=== PATIENT | female | born 1960 | race Caucasian/White ===

== ENCOUNTER 2017-06-15 11:18 | Day surgery (SDC) | payer MEDICARE ==
--- NOTE | 2017-06-15 08:23 | HP ---
DATE OF SURGERY: 06/15/2017 HISTORY OF PRESENT ILLNESS: The patient is a 56 year-old who had some nausea, vomiting, epigastric pain for some time. Ultrasound positive cholelithiasis and wall thickening. I feel she has symptomatic cholelithiasis, chronic cholecystitis. I feel she will benefit from cholecystectomy. She had some nausea and vomiting, epigastric pain radiating to the chest. She does have history of prior open bariatric surgery 15 years ago. She did get cardiac clearance from Dr. Carver. PAST MEDICAL HISTORY: Arthritis. PAST SURGICAL HISTORY: Hip surgery, knee surgery, bariatric surgery in the past. Lap right salpingo-oophorectomy and D&C in the past by Dr. Clayton. MEDICATIONS: Ambien. She took some sort of stomach pill, [place] and Lasix. ALLERGIES: NKDA. FAMILY HISTORY: Negative in regards to this problem. Factor V issues in the past. SOCIAL HISTORY: No alcohol abuse. REVIEW OF SYSTEMS: Twelve systems reviewed per admission assessment. No chest pain or palpitations other systems negative or noncontributory as above and per preadmission questionnaire and per Dr. Carver' cardiac clearance. She has had history of blood clot. PHYSICAL EXAMINATION: GENERAL: No acute distress. HEENT: Sclerae nonicteric. NECK: No JVD. CHEST: Equal excursion, nonlabored breathing. CVS: Regular rate and rhythm. ABDOMEN: Soft, some mild tenderness epigastrium. No peritoneal signs. She does have upper midline incision from her prior bariatric surgery. EXTREMITIES: No significant edema. NEURO: Alert, moving extremities symmetrically. No gross motor deficits noted. IMPRESSION: Symptomatic cholelithiasis, probable chronic cholecystitis. I feel the patient would benefit from cholecystectomy. Risks and benefits explained in detail including but not limited to bleeding or infection, risk of trocar injury or hernia, small risk of bowel, bladder or blood vessel injury, small risk of bile leak, bile duct injury, retained stone or sludge possibly requiring further procedure either open or ERCP, general risk of anesthesia, deep venous thrombosis, pulmonary embolism, pneumonia, perioperative risk of aches, pains, bloating, constipation and/or loose stools possibly chronic in nature, general risk of anesthesia or sedation, postoperative risk of deep venous thrombosis, pulmonary embolism, pneumonia but not limited to. She understands and agrees to the planned procedure, will proceed with laparoscopic cholecystectomy possible open. She understands with her upper midline incision she has a higher probability of possibly needing open procedure which might require hospital stay, higher risk of wound infection or hernia. She understands and agrees with the planned procedure will proceed with laparoscopic cholecystectomy with possible open.
[~2017-06-15 11:18] MED LIST: BRIDION 200MG/2ML IV ONE; DIPRIVAN 200 MG/20 ML IV ONE; Decadron 4 MG INJ IV ONE; Lactated Ringers 1,000 ML IV ONE; MEFOXIN 2 GM PREMIX** 2 GM/50 ML ML IV ONE; Quelicin Fliptop 200 MG/10 ML IV ONE; SUBLIMAZE 100 MCG/2 ML IV ONE; Sensorcaine 0.25% 10 ML ONE; Zemuron 100 MG/10 ML IV ONE; Zofran 4 MG/2 ML VIAL IV ONE
[2017-06-15] MEDS ORDERED: Lactated Ringers 1,000 ML IV SCH (12:00)
[2017-06-15] MEDS ORDERED: MEFOXIN 2 GM PREMIX** 2 GM/50 ML ML IV ONE (12:00)
[2017-06-15 12:34] LABS: ANION GAP 12.7 MEQ/L (5-15); Carbon Dioxide 27.3 mEq/L (21-32); Potassium 3.8 mEq/L (3.5-5.1)
[2017-06-15] MEDS ORDERED: XYLOCAINE 2%/Epi 1:200000 20ML VIAL MPF ONE (17:30)
[2017-06-15] MEDS ORDERED: Lactated Ringers 1,000 ML IV ONE (17:48)
[2017-06-15] MEDS ORDERED: SUBLIMAZE 100 MCG/2 ML ONE (17:57)
[2017-06-15] MEDS ORDERED: DILAUDID 2 MG INJECTION ONE (17:57)
[2017-06-15] MEDS ORDERED: DEMEROL 25MG SYRINGE IV ONE (19:10)
[2017-06-15] MEDS ORDERED: DEMEROL 50 MG ONE (19:12)
[2017-06-15] MEDS ORDERED: Zofran 4 MG/2 ML VIAL IV STA (19:24)
[2017-06-15] MEDS ORDERED: Zofran 4 MG/2 ML VIAL ONE (19:25)
[2017-06-15 19:48] VITALS: BP 101/52; PULSE 18; O2SAT 93
--- NOTE | 2017-06-16 10:30 | OP ---
SURGERY DATE/TIME: 06/15/2017 1615 PREOPERATIVE DIAGNOSIS: Symptomatic cholelithiasis, chronic cholecystitis, prior history of bariatric surgery. POSTOPERATIVE DIAGNOSIS: Moderate to severe chronic cholecystitis and cholelithiasis. PROCEDURE: Laparoscopic cholecystectomy. SURGEON: Dr. Brady Burns. REGULATORY PROCESS MANAGER: Landy Fletcher, Medical Student III. ANESTHESIA: General. ESTIMATED BLOOD LOSS: Minimal. INDICATIONS: As noted above. Risks and benefits explained in detail but not limited to and consent obtained. DESCRIPTION OF PROCEDURE AND FINDINGS: The patient was taken to the OR. General anesthesia was induced. Abdomen prepped and draped in the usual sterile fashion. After official time out and no disagreement with planned procedure, a transverse incision made at supraumbilical area. She had upper midline incision from past bariatric surgery. Fascia pulled up. Veress needle inserted and tested with saline. Pneumoperitoneum accomplished insufflating opening pressure of 0-15. A 5 mm bladeless port and camera were inserted without difficulty followed by two - 5 mm right upper quadrant ports and an 11 mm epigastric port. The gallbladder was grasped. It has a little bit of a thick wall. It had extensive omental fibrofatty adhesions on it that were densely adherent and quite vascular this took some time but slowly and carefully dissected posterior-lateral to anterior fashion, required clipping some of these omental oozing veins as necessary. Extensive inflammatory reaction. Slowly and carefully the cystic duct and infundibular junction slowly and carefully well skeletonized until a critical view was obtained both anteriorly and posteriorly. Once this was accomplished cystic duct was then clipped x3 and divided in the usual fashion directly adjacent to the infundibulum. The gallbladder is slowly and carefully dissected free from its dense almost concrete attachments to the liver bed clipping additional oozing side branch off the cystic artery as necessary as well as main cystic arterial branch clipped x3 and divided. Gallbladder slowly and carefully dissected free half way up the gallbladder, the thin-walled friable gallbladder. Just from traction a small pin-hole that spilled some bile this was suction irrigated as well as possible. There was no evidence of any obvious visible stone spillage at this time in this overweight patient. The gallbladder was slowly and carefully dissected free clipping additional oozing side branches off the cystic artery as necessary on the gallbladder wall, this took some time given the floppy gallbladder, decompressed gallbladder slowly and carefully accomplished. Just prior to releasing from final attachments to the anterior edge of the liver the liver bed was re-inspected. Clips noted to be in place in cystic duct and cystic artery stumps. There were no signs of any active bleeding or bile leakage on the liver bed itself. The gallbladder was released from final attachments to the anterior edge of the liver, placed in Pleatman sac. One large stone in the gallbladder put in Pleatman sac. It was able to be retrieved and placed in the bag. There were no other visible spilled stones at this point with the patient's weight. Copious amount of irrigation irrigated clear. The gallbladder and stones were pulled free and passed off. Port replaced. Copious amount of irrigation accomplished lateral to the liver and subhepatic space irrigating until clear. It was felt given extensive inflammatory reaction it was felt she would benefit from temporary GALA drain placement to bulb suction, 10 flat GALA placed subhepatic space out through lateral port incision secured with PDS suture and placed to bulb suction. Copious amount of irrigation irrigated unclear clear. Her skin was almost anti-platelet affect oozing but good hemostasis was noted. Only the 10/11 port site epigastrium was closed with puncture closure device and the rest of the 5 mm port sites. Pneumoperitoneum decompressed. The wound irrigated out. Skin incision closed with 4-0 Vicryl. Steri-Strips and sterile dressing applied. 0.25% Marcaine local had been injected along the skin incision fascial defect. This was a long difficult dissection given extensive inflammatory reaction. The patient tolerated the procedure well. There were no immediate complications. Findings discussed with the family out in the waiting area.
== END 2017-06-15 19:50 | disposition home or self-care (01) ==
LOC: SDC 11:18
PROVIDERS: ATTEND Surgery
PROC: 0FT44ZZ Resection of Gallbladder, Percutaneous Endoscopic Approach (ICD-10-PCS; principal; 2017-06-15)
DX: K80.10 Calculus of gallbladder with chronic cholecystitis without obstruction (principal); Z98.84 Bariatric surgery status; M19.90 Unspecified osteoarthritis, unspecified site
CPT/HCPCS: 00790; 36415; 80048; J0330; J0694; J1100; J1170; J2175; J2405; J2704; J3010

== ENCOUNTER 2017-10-29 15:36 | Emergency (ER) | payer MEDICARE ==
[2017-10-29] MEDS ORDERED: MORPHINE SULFATE 4 MG INJ IV ONE ×2 (15:55→16:40)
[2017-10-29] MEDS ORDERED: Phenergan 25 MG INJ IV ONE (15:55)
[2017-10-29] MEDS ORDERED: MORPHINE SULFATE 4 MG INJ ONE ×2 (15:59→16:47)
[2017-10-29] MEDS ORDERED: Phenergan 25 MG INJ ONE (15:59)
[2017-10-29] MEDS ORDERED: Sodium Chloride 0.9% 1000 ML 1,000 ML ONE (15:59)
[2017-10-29 16:01] LABS: VBG BASE EXCESS 1.5 (-2.0-2.0); VBG CARBOXYHEMOGLOBIN 2.1 % T HGB (0.0-6.9); VBG HCO3- 26.6 meq/L (22-28); VBG HEMOGLOBIN 13.4; VBG O2 SATURATION 55.6 (95-100); VBG POTASSIUM 3.8 (3.5-5.1); VBG pH 7.4 (7.32-7.42)
[2017-10-29] MEDS ORDERED: Sodium Chloride 0.9% 1000 ML 1,000 ML IV STA (16:01)
--- NOTE | 2017-10-29 16:02 | ERPHSYRPT ---
- History of Present Illness Time Seen by Provider: 10/29/17 15:56 Source: patient Exam Limitations: no limitations Patient Subjective Stated Complaint: pt here for a headache today getting worse last couple hours, had gas leak last week thought it was fixed and gas was turned back on yesterday, pain all over, nausea and vomiting Triage Nursing Assessment: pt walked in, unsteady on feet. crying holding head, alert, and oriented, resp easy, skin w/d pink Physician History: 57-year-old white female arrives with complaint of frontal headache photophobia , nausea and vomiting symptoms since yesterday. Patient denies any fevers. Patient states she had a recent gas leak in her house and had the gas on yesterday Past medical history includes hypothyroidism, rheumatoid arthritis, depression Past surgical history includes right hip and right knee replacement Social history patient denies tobacco alcohol or illicit drug use Timing/Duration: yesterday Quality: aching Head Pain Location: frontal Severity of Pain-Max: moderate Severity of Pain-Current: moderate Recent Head Trauma: no recent headache/trauma, occasional headaches Associated Symptoms: nausea/vomiting, No confusion, No dizziness, No fatigue, No facial pain, No fever/chills, No flushing, No light-headedness, No loss of consciousness, No nasal congestion, No nasal drainage, No neck pain, No numbness in legs/feet, No rash, No sweating, No scotoma, No seizures, No sinus infection, No sensitive to light, No speech problems, No stiff neck, No trouble walking, No vision changes, No visual disturbance, No weakness Previous symptoms: no prior history Allergies/Adverse Reactions: No Known Drug Allergies Allergy (Verified 10/29/17 15:52) Home Medications: Furosemide 40 mg [Lasix 40 MG] 40 mg PO HS 04/27/13 [History] Topiramate 100 mg [Topamax 100 MG] 100 mg PO BID 04/27/13 [History] Zolpidem Tartrate 10 mg [Ambien 10 MG] 10 mg PO HS 04/27/13 [History] Aspirin 81 gm Chew [Baby Aspirin 81 mg Chew] 81 mg PO DAILY 02/12/17 [ History] Hydrocodone Bit/Acetaminophen [[place] 7.5-325 Tablet] 1 each PO BID 02/12/17 [ History] Omeprazole [Prilosec] 40 mg PO DAILY 02/12/17 [History] Smz/Tmp Ds Tablet [Bactrim Ds Tablet] 1 tab PO Q12H 10/29/17 [History] Hx Tetanus, Diphtheria Vaccination/Date Given: Yes (UP TO DATE) Hx Influenza Vaccination/Date Given: No Hx Pneumococcal Vaccination/Date Given: No Immunizations Up to Date: Yes - Review of Systems Constitutional: No Fever, No Chills Eyes: Photophobia, No Discharge, No Eye Pain, No Eye Redness, No Itchy, No Tearing, No Vision Changes, No Double Vision, No Foreign Body Sensation Ears, Nose, & Throat: No Symptoms, No Ear Pain, No Ear Discharge, No Hearing Changes, No Tinnitus, No Nose Pain, No Nose Congestion, No Nose Discharge, No Sinus Drainage, No Epistaxis, No Mouth Pain, No Mouth Swelling, No Loose Teeth, No Throat Pain, No Throat Swelling, No Hoarse, No Painful Swallowing, No Snoring , No Stridor Respiratory: No Cough, No Dyspnea Cardiac: No Chest Pain, No Edema, No Syncope Abdominal/Gastrointestinal: Nausea, Vomiting, No Abdominal Pain, No Diarrhea, No Constipation, No Hematemesis, No Hematochezia, No Melena, No Dysphagia, No Appetite Changes Genitourinary Symptoms: No Dysuria Musculoskeletal: No Back Pain, No Neck Pain Skin: No Rash Neurological: Headache, No Dizziness, No Focal Weakness, No Gait Changes, No Irritability, No Lethargy, No Paralysis, No Parasthesia, No Seizure, No Sensory Changes, No Speech Changes, No Tics, No Tremors, No Vertigo (we can probably give her a liter of) Psychological: No Symptoms Endocrine: No Symptoms All Other Systems: Reviewed and Negative - Past Medical History Pertinent Past Medical History: Yes Neurological History: Migraines ENT History: No Pertinent History Cardiac History: Angina Respiratory History: No Pertinent History Endocrine Medical History: Hypothyroidism Musculoskeletal History: Rheumatoid Arthritis GI Medical History: GERD, Gallbladder Disease History: Other Psycho-Social History: Depression Female Reproductive Disorders: No Pertinent History Other Medical History: frequent uti. fluid retention. insomnia - Past Surgical History Past Surgical History: Yes Neuro Surgical History: No Pertinent History Cardiac: No Pertinent History Respiratory: No Pertinent History Gastrointestinal: No Pertinent History Genitourinary: No Pertinent History Musculoskeletal: Other Female Surgical History: Tubal Ligation Other Surgical History: stomach stapled, right hip and knee replacement, ovary removed. knees scopes. rigth finger amputation - Social History Smoking Status: Never smoker How long have you smoked: 2-3 Exposure to second hand smoke: No Drug Use: none Patient Lives Alone: No - Female History Hx Last Menstrual Period: post Hx Now: No - Nursing Vital Signs Nursing Vital Signs: Initial Vital Signs Temperature 97.2 F 10/29/17 15:44 Pulse Rate 91 H 10/29/17 15:44 Respiratory Rate 16 10/29/17 15:44 Blood Pressure 146/57 10/29/17 15:44 O2 Sat by Pulse Oximetry 97 10/29/17 15:44 Pain Scale Pain Intensity 5 - Physical Exam General Appearance: moderate distress, alert Eye Exam: PERRL/EOMI, photophobia, other (fundi are unremarkable), No eyes nml inspection, No scleral icterus, No pale conjunctivae, No post op pupil defect (L ), No post op pupil defect (R), No EOM palsy/anisocoria Ears, Nose, Throat Exam: normal ENT inspection, pharynx normal, moist mucous membranes Neck Exam: normal inspection, supple, full range of motion, No meningismus Respiratory Exam: normal breath sounds, lungs clear Cardiovascular Exam: regular rate/rhythm, normal heart sounds Gastrointestinal/Abdominal Exam: soft, No tenderness, No distention Back Exam: normal inspection, normal range of motion Mental Status Exam: alert, 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, 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 Exam: normal speech, PERRL, No facial droop Coordination/Gait Exam: normal gait, normal cerebellar function, No ABN nose to finger (R), No ABN nose to finger (L) Motor/Sensory Exam: no motor deficit, no sensory deficit, no pronator drift, No pronator drift (R), No pronator drift (L), No sensory deficit, No weak motor strength RUE, No weak motor strength LUE, No weak motor strength RLE, No weak motor strength LLE DTR Exam: ankle (R): 2+, ankle (L): 2+ Skin Exam: normal color, warm, dry, No rash Lymphatic Exam: adenopathy SpO2 Interpretation: normal (97%) Oxygen Delivery: Room Air - Course Nursing assessment & vital signs reviewed: Yes Ordered Tests: Active Orders 24 hr Category Date Time Status IV Insertion STAT Care 10/29/17 15:55 Active BMP Stat Lab 10/29/17 16:00 Completed CBC W DIFF Stat Lab 10/29/17 16:00 Completed VENOUS BLOOD GAS Urgent Lab 10/29/17 15:56 Completed Medication Summary Discontinued Medications Generic Name Dose Route Start Last Admin Trade Name Zechariah PRN Reason Stop Dose Admin Sodium Chloride 1,000 mls @ 999 mls/hr 10/29/17 16:01 10/29/17 16:04 Sodium Chloride 0.9% 1000 Ml IV 10/29/17 17:01 999 mls/hr .Q1H1M STA Administration Sodium Chloride Confirm 10/29/17 15:59 Sodium Chloride 0.9% 1000 Ml Administered 10/29/17 16:00 Dose 1,000 mls @ ud .ROUTE .STK-MED ONE Morphine Sulfate 4 mg 10/29/17 15:55 10/29/17 16:08 Morphine Sulfate 4 Mg Inj IV 10/29/17 15:56 4 mg STAT ONE Administration Morphine Sulfate Confirm 10/29/17 15:59 Morphine Sulfate 4 Mg Inj Administered 10/29/17 16:00 Dose 4 mg .ROUTE .STK-MED ONE Morphine Sulfate 4 mg 10/29/17 16:40 10/29/17 16:47 Morphine Sulfate 4 Mg Inj IV 10/29/17 16:41 4 mg STAT ONE Administration Morphine Sulfate Confirm 10/29/17 16:47 Morphine Sulfate 4 Mg Inj Administered 10/29/17 16:48 Dose 4 mg .ROUTE .STK-MED ONE Promethazine HCl 12.5 mg 10/29/17 15:55 10/29/17 16:04 Phenergan 25 Mg Inj IV 10/29/17 15:56 12.5 mg STAT ONE Administration Promethazine HCl Confirm 10/29/17 15:59 Phenergan 25 Mg Inj Administered 10/29/17 16:00 Dose 25 mg .ROUTE .STK-MED ONE Lab/Rad Data: Laboratory Result Diagrams 10/29/17 16:00 10/29/17 16:00 Laboratory Results 10/29/17 10/29/17 10/29/17 Range/Units 16:00 16:00 15:56 WBC 7.5 (4.0-10.5) K/mm3 RBC 4.05 L (4.1-5.4) M/mm3 Hgb 12.7 (12.0-16.0) gm/dl Hct 40.1 (35-47) % MCV 99.0 (78-100) fl MCH 31.3 (26-32) pg MCHC 31.7 L (32-36) g/dl RDW 12.5 (11.5-14.0) % Plt Count 324 (150-450) K/mm3 MPV 9.8 H (6-9.5) fl Gran % 69.0 H (36.0-66.0) % Lymphocytes % 22.3 L (24.0-44.0) % Monocytes % 7.2 (0.0-12.0) % Eosinophils % 1.1 (0.00-5.0) % Basophils % 0.4 (0.0-0.4) % Basophils # 0.03 (0-0.4) VBG pH 7.40 (7.32-7.42) VBG pCO2 at Pat Temp 43 (42-55) mm/Hg VBG pO2 at Pat Temp 26 (25-40) mm/Hg VBG HCO3 26.6 (22-28) meq/L VBG O2 Sat ([place]ued[place]) 55.6 L (95-100) VBG Base Excess 1.5 (-2.0-2.0) VBG Hemoglobin 13.4 VBG Carboxyhemoglobin 2.1 (0.0-6.9) % T HGB POC Potassium 3.8 (3.5-5.1) Sodium 141 (136-145) mEq/L Potassium 3.8 (3.5-5.1) mEq/L Chloride 106 (98-107) mEq/L Carbon Dioxide 25.5 (21-32) mEq/L Anion Gap 13.4 (5-15) MEQ/L BUN 11 (9-20) mg/dL Creatinine 1.12 (0.55-1.30) mg/dl Estimated GFR 53 ML/MIN Glucose 113 H (70-110) MG/DL Calcium 9.1 (8.5-10.1) mg/dL - Progress Progress: improved Air Movement: fair Progress Note: 10/29/17 16:41 Patient with a headache since yesterday nausea vomiting photophobia. No fevers patient does have a history of migraines but hasn't had one for quite a while. Patient is started on IV normal saline bolus 1 L also given 4 mg of morphine. CBC BMP are essentially normal. Venous gases are obtained . carbon monoxide is within normal limits Patient states she is feeling better still has a headache of about 4-5 Will give her a second dose of morphine. We'll consider discharge after second dose if continues to improve. 10/29/17 17:11 Patient feeling better, wants to go home we'll discharge. - Departure Time of Disposition: 17:12 Departure Disposition: Home Clinical Impression: Migraine headache Qualifiers: Migraine type: unspecified Status migrainosus presence: without status migrainosus Intractability: not intractable Qualified Code(s): G43.909 - Migraine, unspecified, not intractable, without status migrainosus Condition: Fair Critical Care Time: No Referrals: RO VASQUEZ [Primary Care Provider] - Instructions: Headache Additional Instructions: Return home rest in a dark quiet room. Follow-up with your family doctor if symptoms are recurrent. Return for acute distress or for severe symptoms.
[2017-10-29 16:06] LABS: BASOPHIL % 0.4 % (0.0-0.4); Eosinophil % 1.1 % (0.00-5.0); Lymphocytes % 22.3 % (24.0-44.0); Mean Platelet Volume 9.8 fl (6-9.5); Monocytes % 7.2 % (0.0-12.0); Platelet Count 324 K/mm3 (150-450); Red Blood Count 4.05 M/mm3 (4.1-5.4); Red Cell Distribution Width 12.5 % (11.5-14.0); White Blood Count 7.5 K/mm3 (4.0-10.5)
[2017-10-29 16:26] LABS: ANION GAP 13.4 MEQ/L (5-15); Carbon Dioxide 25.5 mEq/L (21-32); Mean Corpuscular Hemoglobin 31.3 pg (26-32); Potassium 3.8 mEq/L (3.5-5.1)
[2017-10-29 16:56] VITALS: O2SAT 95
[2017-10-29 17:29] VITALS: BP 98/61; PULSE 74
== END 2017-10-29 17:35 | disposition home or self-care (01) ==
LOC: ED 15:36
DX: G43.909 Migraine, unspecified, not intractable, without status migrainosus (principal); R11.2 Nausea with vomiting, unspecified; Z79.891 Long term (current) use of opiate analgesic; Z79.899 Other long term (current) drug therapy
CPT/HCPCS: 36000; 36415; 80048; 82805; 85025; 96360; 96374; 99284; J2270; J2550

== ENCOUNTER 2018-03-02 13:04 | Emergency (ER) | payer MEDICARE ==
[2018-03-02] MEDS ORDERED: Phenergan 25 MG INJ IV ONE (13:40)
[2018-03-02] MEDS ORDERED: MORPHINE SULFATE 4 MG INJ IV ONE (13:40)
--- NOTE | 2018-03-02 13:49 | ERPHSYRPT ---
- History of Present Illness Time Seen by Provider: 03/02/18 13:40 Source: patient Exam Limitations: no limitations Patient Subjective Stated Complaint: migraine since 0500 today with vomiting. Triage Nursing Assessment: ambulated to room per self covering eyes. skin w/d, color normal, resp easy. lashell Physician History: 57 y/o female with history of migraine headache comes to the ER with complaints of left sided headache that started last night. Pt describes the pain as throbbing, constant, 8/10 and not relieved by motrin. Pt also admits to nausea, photophobia and blurry vision. Pt admits that the headache is similar to her previous migraine headache. Timing/Duration: yesterday Quality: throbbing Head Pain Location: frontal Severity of Pain-Max: severe Severity of Pain-Current: severe Recent Head Trauma: occasional headaches Modifying Factors: Improves With: exposure to light Associated Symptoms: nausea/vomiting, sensitive to light Previous symptoms: same symptoms as today Allergies/Adverse Reactions: No Known Drug Allergies Allergy (Verified 03/02/18 13:24) Home Medications: Furosemide 40 mg [Lasix 40 MG] 40 mg PO HS 04/27/13 [History] Aspirin 81 gm Chew [Baby Aspirin 81 mg Chew] 81 mg PO DAILY 02/12/17 [ History] Omeprazole [Prilosec] 40 mg PO DAILY 02/12/17 [History] Hx Tetanus, Diphtheria Vaccination/Date Given: Yes (UP TO DATE) Hx Influenza Vaccination/Date Given: No Hx Pneumococcal Vaccination/Date Given: No - Review of Systems Constitutional: No Fever, No Chills Eyes: No Symptoms Ears, Nose, & Throat: No Symptoms Respiratory: No Cough, No Dyspnea Cardiac: No Chest Pain, No Edema, No Syncope Abdominal/Gastrointestinal: Nausea, No Abdominal Pain, No Vomiting, No Diarrhea Genitourinary Symptoms: No Dysuria Musculoskeletal: No Back Pain, No Neck Pain Skin: No Rash Neurological: Headache, No Dizziness, No Focal Weakness, No Sensory Changes Psychological: No Symptoms Endocrine: No Symptoms All Other Systems: Reviewed and Negative - Past Medical History Pertinent Past Medical History: Yes Neurological History: Migraines ENT History: No Pertinent History Cardiac History: Angina Respiratory History: No Pertinent History Endocrine Medical History: Hypothyroidism Musculoskeletal History: Rheumatoid Arthritis GI Medical History: GERD, Gallbladder Disease History: Other Psycho-Social History: Depression Female Reproductive Disorders: No Pertinent History Other Medical History: frequent uti. fluid retention. insomnia - Past Surgical History Past Surgical History: Yes Neuro Surgical History: No Pertinent History Cardiac: No Pertinent History Respiratory: No Pertinent History Gastrointestinal: No Pertinent History Genitourinary: No Pertinent History Musculoskeletal: Other Female Surgical History: Tubal Ligation Other Surgical History: stomach stapled, right hip and knee replacement, ovary removed. knees scopes. rigth finger amputation - Social History Smoking Status: Never smoker How long have you smoked: 2-3 Exposure to second hand smoke: No Drug Use: none Patient Lives Alone: Yes - Female History Hx Now: No - Nursing Vital Signs Nursing Vital Signs: Initial Vital Signs Pulse Rate 58 L 03/02/18 13:54 Respiratory Rate 18 03/02/18 13:54 Blood Pressure 94/71 03/02/18 13:54 O2 Sat by Pulse Oximetry 97 03/02/18 13:54 Pain Scale Pain Intensity 5 - Physical Exam General Appearance: no apparent distress Eye Exam: PERRL/EOMI, photophobia Ears, Nose, Throat Exam: normal ENT inspection, moist mucous membranes Neck Exam: normal inspection, supple, full range of motion, No meningismus Respiratory Exam: normal breath sounds, lungs clear Cardiovascular Exam: regular rate/rhythm, normal heart sounds Gastrointestinal/Abdominal Exam: soft, normal bowel sounds, No tenderness, No distention Back Exam: normal inspection, normal range of motion Extremity Exam: normal inspection, normal range of motion Mental Status Exam: alert, 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, 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 Exam: normal speech, PERRL, No facial droop Coordination/Gait Exam: normal finger to nose, normal gait, normal cerebellar function Motor/Sensory Exam: no motor deficit, no sensory deficit Skin Exam: normal color, warm, dry, No rash - Course Nursing assessment & vital signs reviewed: Yes Ordered Tests: Active Orders 24 hr Category Date Time Status IV Insertion STAT Care 03/02/18 13:40 Active Medication Summary Discontinued Medications Generic Name Dose Route Start Last Admin Trade Name Freq PRN Reason Stop Dose Admin Morphine Sulfate 4 mg 03/02/18 13:40 03/02/18 13:51 Morphine Sulfate 4 Mg Inj IV 03/02/18 13:41 4 mg STAT ONE Administration Morphine Sulfate Confirm 03/02/18 13:50 Morphine Sulfate 4 Mg Inj Administered 03/02/18 13:51 Dose 4 mg .ROUTE .STK-MED ONE Promethazine HCl 12.5 mg 03/02/18 13:40 03/02/18 13:51 Phenergan 25 Mg Inj IV 03/02/18 13:41 12.5 mg STAT ONE Administration Promethazine HCl Confirm 03/02/18 13:50 Phenergan 25 Mg Inj Administered 03/02/18 13:51 Dose 25 mg .ROUTE .STK-MED ONE - Progress Progress: improved Progress Note: 03/02/18 14:26 The patient feels better after receiving morphine and phenergan. She rates the pain as 5/10 and will receive a dose of toradol prior to being discharged. - Departure Time of Disposition: 14:27 Departure Disposition: Home Clinical Impression: Migraine headache Qualifiers: Migraine type: unspecified Status migrainosus presence: without status migrainosus Intractability: not intractable Qualified Code(s): G43.909 - Migraine, unspecified, not intractable, without status migrainosus Condition: Stable Critical Care Time: No Referrals: RO VASQUEZ [Primary Care Provider] - Instructions: Migraine Headache (DC) Additional Instructions: Follow up with your primary care doctor if you should have worsening headache, nausea, vomiting or sensitivity to light.
[2018-03-02] MEDS ORDERED: MORPHINE SULFATE 4 MG INJ ONE (13:50)
[2018-03-02] MEDS ORDERED: Phenergan 25 MG INJ ONE (13:50)
[2018-03-02] MEDS ORDERED: TORAdol 30 mg Injection IV ONE (14:25)
[2018-03-02] MEDS ORDERED: TORAdol 30 mg Injection ONE (14:28)
[2018-03-02 14:47] VITALS: BP 109/73; PULSE 66; O2SAT 96
== END 2018-03-02 14:51 | disposition home or self-care (01) ==
LOC: ED 13:04
DX: G43.909 Migraine, unspecified, not intractable, without status migrainosus (principal); R11.2 Nausea with vomiting, unspecified; Z79.82 Long term (current) use of aspirin; Z79.899 Other long term (current) drug therapy
CPT/HCPCS: 36000; 96374; 96375; 99283; 99284; J1885; J2270; J2550

== ENCOUNTER 2018-07-01 11:57 | Emergency (ER) | payer MEDICARE ==
[2018-07-01 12:26] VITALS: O2SAT 97
--- NOTE | 2018-07-01 12:53 | ERPHSYRPT ---
- History of Present Illness Time Seen by Provider: 07/01/18 12:49 Historian: patient Exam Limitations: no limitations Patient Subjective Stated Complaint: ONSET OF RUQ PAIN STARTING AT 1000TODAY NO KNOWN INJURY. PAIN ON PALPATION INCREASED PAIN WITYH DEEP BREATHING. Triage Nursing Assessment: ALEERT AND OBVIOUS PAIN WITH DEEP BREATHING. LUNGS CLEAR. PAIN WITH MOVEMENT. STATES PAIN STARTED AFTER BENDING TO [employer] BOX. DENEIS OTHER SYMPTOMS. Physician History: The patient is a 57-year-old female complaining of 2 episodes of right upper quadrant abdominal pain this morning. The first one occurred when she bent over and picked up a board. The pain lasted 25 minutes. The second episode began when she picked up a package. The episode lasted 1-1/2 hours and has not completely tells me that she had a abdominal series scan done about 2 months ago. She was told she had a "mass and she was to have seen a doctor in [place] but did not. Her past medical history is significant for GERD. Her past surgical history is significant for cholecystectomy and gastric stapling. I reviewed the radiology report from her abdomen pelvis CT scan done on March. Impression is new nonobstructing left renal; stable hepatic hemangioma and small hiatal hernia. Remaining CT scan was negative. Timing/Duration: today, sudden, improved Activities at Onset: activity Quality: stabbing Abdominal Pain Onset Location: RUQ, epigastric Pain Radiation: no radiation Severity of Pain-Max: severe Severity of Pain-Current: moderate Modifying Factors: Improves With: other (bending at waist makes pain worse.) Associated Symptoms: No diaphoresis, No diarrhea, No nausea, No vomiting Previous symptoms: no prior history Allergies/Adverse Reactions: No Known Drug Allergies Allergy (Verified 07/01/18 13:19) Hx Tetanus, Diphtheria Vaccination/Date Given: Yes (UP TO DATE) Hx Influenza Vaccination/Date Given: No Hx Pneumococcal Vaccination/Date Given: No - Review of Systems Constitutional: No Fever, No Chills Eyes: No Symptoms Ears, Nose, & Throat: No Symptoms Respiratory: No Cough, No Dyspnea Cardiac: No Chest Pain, No Edema, No Syncope Abdominal/Gastrointestinal: Abdominal Pain, No Nausea, No Vomiting, No Diarrhea Genitourinary Symptoms: No Dysuria Musculoskeletal: No Back Pain, No Neck Pain Skin: No Rash Neurological: No Dizziness, No Focal Weakness, No Sensory Changes Psychological: No Symptoms Endocrine: No Symptoms Hematologic/Lymphatic: No Symptoms Immunological/Allergic: No Symptoms All Other Systems: Reviewed and Negative - Past Medical History Pertinent Past Medical History: Yes Neurological History: Migraines ENT History: No Pertinent History Cardiac History: Angina Respiratory History: No Pertinent History Endocrine Medical History: Hypothyroidism Musculoskeletal History: Rheumatoid Arthritis GI Medical History: GERD, Gallbladder Disease History: Other Psycho-Social History: Depression Female Reproductive Disorders: No Pertinent History Other Medical History: frequent uti. fluid retention. insomnia - Past Surgical History Past Surgical History: Yes Neuro Surgical History: No Pertinent History Cardiac: No Pertinent History Respiratory: No Pertinent History Gastrointestinal: No Pertinent History Genitourinary: No Pertinent History Musculoskeletal: Other Female Surgical History: Tubal Ligation Other Surgical History: stomach stapled, right hip and knee replacement, ovary removed. knees scopes. rigth finger amputation - Social History Smoking Status: Never smoker How long have you smoked: 2-3 Exposure to second hand smoke: No Drug Use: none Patient Lives Alone: No - Female History Hx Now: No - Nursing Vital Signs Nursing Vital Signs: Initial Vital Signs Temperature 97.9 F 07/01/18 12:20 Pulse Rate 75 07/01/18 12:20 Respiratory Rate 18 07/01/18 12:20 Blood Pressure 109/74 07/01/18 12:20 O2 Sat by Pulse Oximetry 97 07/01/18 12:20 Pain Scale Pain Intensity 2 - Physical Exam General Appearance: mild distress Eye Exam: PERRL/EOMI, eyes nml inspection Ears, Nose, Throat Exam: normal ENT inspection, pharynx normal, moist mucous membranes Neck Exam: normal inspection, non-tender, supple, full range of motion Respiratory Exam: normal breath sounds, lungs clear, No respiratory distress Cardiovascular Exam: regular rate/rhythm, normal heart sounds Gastrointestinal/Abdomen Exam: tenderness (extreme tenderness to palpation of RUQ and epigastrium.) Pelvic Exam: not done Rectal Exam: not done Back Exam: normal inspection Extremity Exam: normal inspection, normal range of motion, pelvis stable Neurologic Exam: alert, 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, cooperative, normal mood/affect, nml cerebellar function, sensation nml, No motor deficits Skin Exam: normal color, warm, dry SpO2 Interpretation: normal SpO2: 97 Oxygen Delivery: Room Air - CT Exams Abdomen/Pelvis CT Interpretation: Tele-radiologist Report (per Dr Herron), No appendicitis, Other (stable hiatal hernia and nonobstructing left renal microcalculus; previous right lobe hepatic hemangioma no seen on this exam.) Ordered Tests: Active Orders 24 hr Category Date Time Status Clean Catch Urine Specimen STAT Care 07/01/18 12:54 Active IV Insertion STAT Care 07/01/18 12:54 Active ABDOMEN AND PELVIS W/0 CONTRAS [CT] Stat Exams 07/01/18 12:55 Completed CBC W DIFF Stat Lab 07/01/18 Completed CMP Stat Lab 07/01/18 13:42 Completed CULTURE,URINE Stat Lab 07/01/18 13:23 Received HCG QUALITATIVE,SERUM Stat Lab 07/01/18 13:42 Completed LIPASE Stat Lab 07/01/18 13:42 Completed Lactic Acid Stat Lab 07/01/18 13:36 Completed UA W/ MICROSCOPIC Stat Lab 07/01/18 13:23 Completed Urine Triage Profile Stat Lab 07/01/18 13:16 Completed Medication Summary Discontinued Medications Generic Name Dose Route Start Last Admin Trade Name Freq PRN Reason Stop Dose Admin Famotidine 20 mg 07/01/18 12:54 07/01/18 13:53 Pepcid 20 Mg Vial IV 07/01/18 12:55 20 mg STAT ONE Administration Famotidine Confirm 07/01/18 13:46 Pepcid 20 Mg Vial Administered 07/01/18 13:47 Dose 20 mg IV .STK-MED ONE Sodium Chloride 1,000 mls @ 999 mls/hr 07/01/18 12:54 07/01/18 13:54 Sodium Chloride 0.9% 1000 Ml IV 07/01/18 13:54 999 mls/hr .Q1H1M STA Administration Sodium Chloride Confirm 07/01/18 13:46 Sodium Chloride 0.9% 1000 Ml Administered 07/01/18 13:47 Dose 1,000 mls @ ud .ROUTE .STK-MED ONE Ketorolac Tromethamine 30 mg 07/01/18 12:54 07/01/18 13:53 Toradol 30 Mg Injection IV 07/01/18 12:55 30 mg STAT ONE Administration Ketorolac Tromethamine Confirm 07/01/18 13:46 Toradol 30 Mg Injection Administered 07/01/18 13:47 Dose 30 mg .ROUTE .STK-MED ONE Morphine Sulfate 4 mg 07/01/18 12:54 07/01/18 13:53 Morphine Sulfate 4 Mg Inj IV 07/01/18 12:55 4 mg STAT ONE Administration Morphine Sulfate Confirm 07/01/18 13:46 Morphine Sulfate 4 Mg Inj Administered 07/01/18 13:47 Dose 4 mg .ROUTE .STK-MED ONE Ondansetron HCl 4 mg 07/01/18 12:54 07/01/18 13:54 Zofran 4 Mg/2 Ml Vial IV 07/01/18 12:55 4 mg STAT ONE Administration Ondansetron HCl Confirm 07/01/18 13:46 Zofran 4 Mg/2 Ml Vial Administered 07/01/18 13:47 Dose 4 mg .ROUTE .STK-MED ONE Lab/Rad Data: Laboratory Result Diagrams 07/01/18 Unknown 07/01/18 13:42 Laboratory Results 07/01/18 07/01/18 07/01/18 Range/Units Unknown 13:42 13:42 WBC 6.4 (4.0-10.5) K/mm3 RBC 4.19 (4.1-5.4) M/mm3 Hgb 13.6 (12.0-16.0) gm/dl Hct 41.1 (35-47) % MCV 98.1 (78-100) fl MCH 32.5 H (26-32) pg MCHC 33.1 (32-36) g/dl RDW 13.0 (11.5-14.0) % Plt Count 305 (150-450) K/mm3 MPV 9.8 H (6-9.5) fl Gran % 49.1 (36.0-66.0) % Eos # (Auto) 0.23 (0-0.5) Absolute Lymphs (auto) 2.33 (1.0-4.6) Absolute Monos (auto) 0.65 (0.0-1.3) Lymphocytes % 36.6 (24.0-44.0) % Monocytes % 10.2 (0.0-12.0) % Eosinophils % 3.6 (0.00-5.0) % Basophils % 0.5 (0.0-0.4) % Absolute Granulocytes 3.13 (1.4-6.9) Basophils # 0.03 (0-0.4) Sodium 144 (137-145) mmol/L Potassium 4.1 (3.5-5.1) mmol/L Chloride 108 H (98-107) mmol/L Carbon Dioxide 27 (22-30) mmol/L Anion Gap 13.9 (5-15) MEQ/L BUN 13 (7-17) mg/dL Creatinine 0.91 (0.52-1.04) mg/dL Estimated GFR > 60.0 ML/MIN Glucose 105 (74-106) mg/dL Lactic Acid (0.4-2.0) Calcium 9.6 (8.4-10.2) mg/dL Total Bilirubin 0.80 (0.2-1.3) mg/dL AST 52 H (14-36) U/L ALT 27 (0-35) U/L Alkaline Phosphatase 97 (38-126) U/L Serum Total Protein 7.3 (6.3-8.2) g/dL Albumin 4.5 (3.5-5.0) g/dL Lipase 72 (23-300) U/L Serum , Qual NEGATIVE (Negative) Ur Collection Type Urine Color (YELLOW) Urine Appearance (CLEAR) Urine pH (5-6) Ur Specific [place] (1.005-1.025) Urine Protein (Negative) Urine Ketones (NEGATIVE) Urine Blood (0-5) Naseem/ul Urine Nitrite (NEGATIVE) Urine Bilirubin (NEGATIVE) Urine Urobilinogen (0-1) mg/dL Ur Leukocyte Esterase (NEGATIVE) Urine Microscopic RBC (0-2) /HPF Urine Microscopic WBC (0-5) /HPF Ur Epithelial Cells (FEW) /HPF Urine Bacteria (NEGATIVE) /HPF Urine Mucus (NEGATIVE) /HPF Urine Culture Reflexed (NO) Urine Glucose (NEGATIVE) mg/dL Urine Opiates Level (NEGATIVE) Ur Methadone (NEGATIVE) Urine Barbiturates (NEGATIVE) Ur Phencyclidine (PCP) (NEGATIVE) Urine Amphetamine (NEGATIVE) U Benzodiazepine Level (NEGATIVE) Urine Cocaine (NEGATIVE) Urine Marijuana (THC) (NEGATIVE) Specimen Received 07/01/18 07/01/18 07/01/18 Range/Units 13:36 13:23 13:16 WBC (4.0-10.5) K/mm3 RBC (4.1-5.4) M/mm3 Hgb (12.0-16.0) gm/dl Hct (35-47) % MCV (78-100) fl MCH (26-32) pg MCHC (32-36) g/dl RDW (11.5-14.0) % Plt Count (150-450) K/mm3 MPV (6-9.5) fl Gran % (36.0-66.0) % Eos # (Auto) (0-0.5) Absolute Lymphs (auto) (1.0-4.6) Absolute Monos (auto) (0.0-1.3) Lymphocytes % (24.0-44.0) % Monocytes % (0.0-12.0) % Eosinophils % (0.00-5.0) % Basophils % (0.0-0.4) % Absolute Granulocytes (1.4-6.9) Basophils # (0-0.4) Sodium (137-145) mmol/L Potassium (3.5-5.1) mmol/L Chloride (98-107) mmol/L Carbon Dioxide (22-30) mmol/L Anion Gap (5-15) MEQ/L BUN (7-17) mg/dL Creatinine (0.52-1.04) mg/dL Estimated GFR ML/MIN Glucose (74-106) mg/dL Lactic Acid 1.0 (0.4-2.0) Calcium (8.4-10.2) mg/dL Total Bilirubin (0.2-1.3) mg/dL AST (14-36) U/L ALT (0-35) U/L Alkaline Phosphatase (38-126) U/L Serum Total Protein (6.3-8.2) g/dL Albumin (3.5-5.0) g/dL Lipase (23-300) U/L Serum , Qual (Negative) Ur Collection Type CCMS Urine Color YELLOW (YELLOW) Urine Appearance CLEAR (CLEAR) Urine pH 5.0 (5-6) Ur Specific [place] 1.030 (1.005-1.025) Urine Protein NEGATIVE (Negative) Urine Ketones NEGATIVE (NEGATIVE) Urine Blood 250 (0-5) Naseem/ul Urine Nitrite NEGATIVE (NEGATIVE) Urine Bilirubin NEGATIVE (NEGATIVE) Urine Urobilinogen NORMAL (0-1) mg/dL Ur Leukocyte Esterase TRACE (NEGATIVE) Urine Microscopic RBC 5-10 (0-2) /HPF Urine Microscopic WBC 0-2 (0-5) /HPF Ur Epithelial Cells RARE (FEW) /HPF Urine Bacteria RARE (NEGATIVE) /HPF Urine Mucus SLIGHT (NEGATIVE) /HPF Urine Culture Reflexed YES (NO) Urine Glucose NEGATIVE (NEGATIVE) mg/dL Urine Opiates Level NEGATIVE (NEGATIVE) Ur Methadone NEGATIVE (NEGATIVE) Urine Barbiturates NEGATIVE (NEGATIVE) Ur Phencyclidine (PCP) NEGATIVE (NEGATIVE) Urine Amphetamine NEGATIVE (NEGATIVE) U Benzodiazepine Level NEGATIVE (NEGATIVE) Urine Cocaine NEGATIVE (NEGATIVE) Urine Marijuana (THC) NEGATIVE (NEGATIVE) Specimen Received 07-01-18 1345 - Progress Progress: improved Counseled pt/family regarding: lab results, diagnosis, rad results - Departure Time of Disposition: 15:29 Departure Disposition: Home Clinical Impression: Abdominal pain Condition: Stable Critical Care Time: No Referrals: SHIELA GUERRERO [Primary Care Provider] - Additional Instructions: You had a brief episode this morning of abdominal pain. You were given Pepcid 20 mg, Toradol 30 mg, Zofran 4 mg, and morphine 4 mg by IV in the ER. Stay well hydrated. Follow-up with your primary medical doctor as needed.
[2018-07-01] MEDS ORDERED: TORAdol 30 mg Injection IV ONE (12:54)
[2018-07-01] MEDS ORDERED: Pepcid 20 MG VIAL IV ONE ×2 (12:54→13:46)
[2018-07-01] MEDS ORDERED: MORPHINE SULFATE 4 MG INJ IV ONE (12:54)
[2018-07-01] MEDS ORDERED: Sodium Chloride 0.9% 1000 ML 1,000 ML IV STA (12:54)
[2018-07-01] MEDS ORDERED: Zofran 4 MG/2 ML VIAL IV ONE (12:54)
[2018-07-01 13:28] LABS: BASOPHIL % 0.5 % (0.0-0.4); Basophil (Absolute #) 0.03 (0-0.4); Eosinophil % 3.6 % (0.00-5.0); Eosinophil (Absolute #) 0.23 (0-0.5); Granulocyte Absolute (ANC) 3.13 (1.4-6.9); Granulocytes % 49.1 % (36.0-66.0); Hematocrit 41.1 % (35-47); Hemoglobin 13.6 gm/dl (12.0-16.0); Lymphocyte (Absolute #) 2.33 (1.0-4.6); Lymphocytes % 36.6 % (24.0-44.0); Mean Cell Volume 98.1 fl (78-100); Mean Corpuscular Hemoglobin 32.5 pg (26-32); Mean Corpuscular Hgb Concent. 33.1 g/dl (32-36); Mean Platelet Volume 9.8 fl (6-9.5); Monocyte (Absolute #) 0.65 (0.0-1.3); Monocytes % 10.2 % (0.0-12.0); Platelet Count 305 K/mm3 (150-450); Red Blood Count 4.19 M/mm3 (4.1-5.4); White Blood Count 6.4 K/mm3 (4.0-10.5)
[2018-07-01 13:45] LABS: Appearance CLEAR (CLEAR); Bilirubin NEGATIVE (NEGATIVE); Glucose NEGATIVE (NEGATIVE); Ketones NEGATIVE (NEGATIVE); Leukocyte Esterase TRACE (NEGATIVE); Nitrite NEGATIVE (NEGATIVE); Protein,Urine Dip NEGATIVE (Negative); Urobilinogen NORMAL mg/dL (0-1)
[2018-07-01 13:46] LABS: Bacteria RARE /HPF (NEGATIVE); Blood 250 Ery/ul (0-5); Epithelial Cells RARE /HPF (FEW); Mucus SLIGHT /HPF (NEGATIVE); WBC 0-2 /HPF (0-5)
[2018-07-01] MEDS ORDERED: TORAdol 30 mg Injection ONE (13:46)
[2018-07-01] MEDS ORDERED: MORPHINE SULFATE 4 MG INJ ONE (13:46)
[2018-07-01] MEDS ORDERED: Sodium Chloride 0.9% 1000 ML 1,000 ML ONE (13:46)
[2018-07-01] MEDS ORDERED: Zofran 4 MG/2 ML VIAL ONE (13:46)
[2018-07-01 13:53] LABS: Amphetamine,Urine NEGATIVE (NEGATIVE); Barbiturate,Urine NEGATIVE (NEGATIVE); Benzodiazepine,Urine NEGATIVE (NEGATIVE); Cocaine,Urine NEGATIVE (NEGATIVE); Methadone,Urine NEGATIVE (NEGATIVE); Opiate,Urine NEGATIVE (NEGATIVE); PCP,Urine NEGATIVE (NEGATIVE); THC,Urine NEGATIVE (NEGATIVE)
[2018-07-01 13:59] LABS: ALBUMIN 4.5 g/dL (3.5-5.0); ALKALINE PHOSPHATASE 97 U/L (38-126); ANION GAP 13.9 MEQ/L (5-15); BLOOD UREA NITROGEN 13 mg/dL (7-17); CHLORIDE 108 mmol/L (98-107); Calcium 9.6 mg/dL (8.4-10.2); Carbon Dioxide 27 mmol/L (22-30); Creatinine 1 0.91 mg/dL (0.52-1.04); Glucose 105 mg/dL (74-106); LIPASE 72 U/L (23-300); Potassium 4.1 mmol/L (3.5-5.1); SGOT/AST 52 U/L (14-36); SGPT/ALT 27 U/L (0-35); SODIUM 144 mmol/L (137-145); Total Protein 7.3 g/dL (6.3-8.2)
--- NOTE | 2018-07-01 14:02 | XRAY ---
Indication: Right upper quadrant/epigastric pain. Multiple contiguous axial images obtained through the abdomen and pelvis without contrast as ordered. Comparison: April 01, 2018. Lung bases demonstrates minimal bibasilar dependent atelectasis. No infiltrate or effusion. Heart is not enlarged. Again moderate sized hiatal hernia. Right hip prosthesis and orthopedic hardware again produces beam artifact. Noncontrasted stomach and bowel loops again nonobstructed with previous gastric stapling and cholecystectomy. Appendix not seen. No free fluid/air. Stable 2 mm nonobstructing left renal calculus. Previous right lobe hepatic hemangioma not seen on this noncontrast exam. Remaining liver, pancreas, spleen, adrenal glands, kidneys, ureters, bladder, uterus, and aorta appear unremarkable. Osseous structures intact. No ventral or inguinal hernias. Impression: 1. Stable hiatal hernia and nonobstructing left renal micro-calculus. 2. Remaining CT abdomen/pelvis without contrast exam is negative. CT DI 23.52
[2018-07-01 16:09] VITALS: BP 96/54; PULSE 70
== END 2018-07-01 16:05 | disposition home or self-care (01) ==
LOC: ED 11:57
DX: R10.11 Right upper quadrant pain (principal); R10.13 Epigastric pain
CPT/HCPCS: 36000; 36415; 74176; 80053; 80307; 81000; 83605; 83690; 84703; 85025; 87086; 96360; 96361; 96374; 96375; 99284; J1885; J2270; J2405

== ENCOUNTER 2020-01-18 06:08 | Day surgery (SDC) | payer MEDICARE ==
[~2020-01-18 06:08] MED LIST changes: -BRIDION 200MG/2ML IV ONE; -DIPRIVAN 200 MG/20 ML IV ONE; -Decadron 4 MG INJ IV ONE; -Lactated Ringers 1,000 ML IV ONE; +Lactated Ringers 1,000 ML IV SCH; -MEFOXIN 2 GM PREMIX** 2 GM/50 ML ML IV ONE; -Quelicin Fliptop 200 MG/10 ML IV ONE; -SUBLIMAZE 100 MCG/2 ML IV ONE; -Sensorcaine 0.25% 10 ML ONE; -Zemuron 100 MG/10 ML IV ONE; -Zofran 4 MG/2 ML VIAL IV ONE
[2020-01-18] MEDS ORDERED: DIPRIVAN 200 MG/20 ML IV ONE ×4 (07:27→08:01)
[2020-01-18] MEDS ORDERED: SUBLIMAZE 100 MCG/2 ML ONE (07:59)
[2020-01-18] MEDS ORDERED: Lactated Ringers 1,000 ML IV ONE (08:14)
[2020-01-18 09:17] VITALS: O2SAT 95
--- NOTE | 2020-01-18 09:20 | OP ---
SURGERY DATE/TIME: 01/18/2020 0732 PREOPERATIVE DIAGNOSES: 1) Hiatal hernia. 2) Persistent gastroesophageal reflux disease. 3) Screening colon. POSTOPERATIVE DIAGNOSES: 1) Hiatal hernia. 2) Ascending colon polyp x1. PROCEDURES: 1) EGD. 2) Colonoscopy. SURGEON: Jamin Powers M.D. ANESTHESIA: MAC by Maxwell Romero CRNA. ESTIMATED BLOOD LOSS: Minimal. SPECIMENS: Hot forceps polypectomy of ascending colon polyp. DESCRIPTION OF PROCEDURE: After informed written consent was obtained, the patient was taken to the endoscopy suite. She underwent monitored anesthesia and a bite block was inserted. The endoscope was inserted in the posterior oropharynx and under direct visualization the esophagus was traversed. The gastroesophageal mucosa had a normal appearance. There was moderate in size hiatal hernia appreciable on entering the gastric cavity. There were no ulcerations or mucosal abnormalities in the antrum or the duodenum. On retroflexion again hiatal hernia was appreciable but no other abnormalities were encountered. The scope was removed and the scopes were switched. Digital rectal exam showed normal sphincter tone and no internal lesions. The scope was inserted in the rectum and sequentially the entire colonic mucosa was traversed. The level of cecum was reached and verified with direct visualization of ileocecal valve. Upon withdrawal careful mucosal inspection revealed a sessile polyp in the ascending colon near the hepatic flexure which was grasped and removed with hot forceps in piecemeal fashion with good removal of the entire lesion and good hemostasis achieved. On further withdrawal no other obvious mucosal abnormalities. There was some mucous present. Prep was noted to be fair. Prior to withdrawal retroflexion was performed and showed no obvious internal lesions. The scope was removed and the patient was transferred to the recovery room in good condition
[2020-01-18 09:25] VITALS: BP 135/80; PULSE 72
== END 2020-01-18 09:25 | disposition home or self-care (01) ==
LOC: SDC 06:08
PROVIDERS: ATTEND Family Medicine
DX: K44.9 Diaphragmatic hernia without obstruction or gangrene (principal); K21.9 Gastro-esophageal reflux disease without esophagitis; Z12.11 Encounter for screening for malignant neoplasm of colon; K63.5 Polyp of colon
CPT/HCPCS: 88305; J2704; J3010

== ENCOUNTER 2021-02-03 06:48 | Emergency (ER) | payer MEDICARE ==
[2021-02-03 07:25] VITALS: O2SAT 95
[2021-02-03] MEDS ORDERED: Sodium Chloride 0.9% 1000 ML 1,000 ML IV STA (07:36)
[2021-02-03] MEDS ORDERED: TORAdol 30 mg Injection IV ONE (07:36)
[2021-02-03] MEDS ORDERED: TYLENOL 325 MG PO ONE (07:36)
[2021-02-03] MEDS ORDERED: BENADRYL 50 MG/ML IV ONE (07:36)
[2021-02-03] MEDS ORDERED: Reglan 10 MG/2 ML IV ONE (07:36)
[2021-02-03] MEDS ORDERED: BENADRYL 50 MG/ML ONE (07:44)
[2021-02-03] MEDS ORDERED: TORAdol 30 mg Injection ONE (07:44)
[2021-02-03] MEDS ORDERED: Sodium Chloride 0.9% 500 ML 500 ML IV ONE ×2 (07:44→09:03)
[2021-02-03] MEDS ORDERED: Reglan 10 MG/2 ML ONE (07:44)
[2021-02-03] MEDS ORDERED: TYLENOL 325 MG ONE (07:44)
--- NOTE | 2021-02-03 07:55 | ERPHSYRPT ---
- History of Present Illness Time Seen by Provider: 02/03/21 07:18 Source: patient Exam Limitations: no limitations Patient Subjective Stated Complaint: PT STATES SHE HAS HAD A HEADACHE. STATES PAIN IS IN THE TOP OF HER HEAD AND THE SIDES. Triage Nursing Assessment: PT ARRIVE PER FAMILY VEHICLE. TO ROOM PER WHEELCHAIR. PT DOES NOT ATTEMPT TO STAND TO GET INTO BED. PT DID STAND WITH ASSIST TO GET INTO THE WHEELCHAIR. PUPILS EQUAL AND REACTIVE. PT WILL LIFT ARMS AT TIMES. UNCOOPERATIVE AT OTHER TIMES. VOICE WEAK. WILL ANSWER SOME QUESTIONS. POOR HISTORIAN. Physician History: 60 years old female with history of migraines not taking any medications presented in the ER with sudden onset generalized headache waking her up from sleep around 11 PM last night, she took 2 Excedrin Migraine with no significant relief and over the course of hours it is gone very worse. Patient reported on presentation her headache was 10/10 intensity without any significant aggravating or relieving factors. Denied any visual symptoms, difficulty speech, focal weakness but does feel weak and fatigued all over. Denies any neck stiffness or pain. No chest pain palpitations or shortness of breath. Had mild nausea initially but no vomiting. Nausea is relieved now. Patient was taken to CT immediately on presentation before my shift shift started and on my evaluation patient report her headache is significantly improved and currently rates 5/10 intensity without any other associated symptoms. Headache is similar to previous episodes. No fever or chills reported. Denies any sick contact. Timing/Duration: hour(s) (8), sudden, worse Quality: sharpness Head Pain Location: frontal, temporal, parietal Severity of Pain-Max: severe Severity of Pain-Current: moderate Recent Head Trauma: no recent headache/trauma Associated Symptoms: fatigue, sensitive to light, No facial pain, No fever/chills, No flushing, No light-headedness, No nausea/vomiting, No nasal congestion, No nasal drainage, No neck pain, No numbness in legs/feet, No seizures, No sinus infection, No speech problems, No stiff neck, No vision changes, No visual disturbance Previous symptoms: same symptoms as today Allergies/Adverse Reactions: No Known Drug Allergies Allergy (Verified 02/03/21 07:25) Home Medications: Omeprazole 1 tab PO DAILY 01/12/20 [History] Trazodone HCl 50 mg [Desyrel 50 mg] 150 mg PO QHS 01/12/20 [History] Hx Tetanus, Diphtheria Vaccination/Date Given: Yes (UP TO DATE) Hx Influenza Vaccination/Date Given: No Hx Pneumococcal Vaccination/Date Given: No Immunizations Up to Date: Yes Travel Risk - International Travel Have you traveled outside of the country in past 3 weeks: No - Coronavirus Screening Are you exhibiting any of the following symptoms?: Yes Symptoms: Headaches/Body Aches/Fatigue Close contact with a COVID-19 positive Pt in past 14-21 Days: No - Review of Systems Constitutional: No Symptoms Eyes: Photophobia Ears, Nose, & Throat: No Symptoms Respiratory: No Symptoms Cardiac: No Symptoms Abdominal/Gastrointestinal: Nausea Genitourinary Symptoms: No Symptoms Musculoskeletal: No Symptoms Skin: No Symptoms Neurological: Headache, No Dizziness, No Parasthesia, No Sensory Changes, No Speech Changes Psychological: No Symptoms Endocrine: No Symptoms Hematologic/Lymphatic: No Symptoms Immunological/Allergic: No Symptoms - Past Medical History Pertinent Past Medical History: Yes Neurological History: No Pertinent History ENT History: No Pertinent History Cardiac History: No Pertinent History, Arrhythmia, Deep Vein Thrombosis Respiratory History: No Pertinent History Endocrine Medical History: No Pertinent History Musculoskeletal History: Osteoarthritis GI Medical History: GERD, Gallbladder Disease History: Other Psycho-Social History: Anxiety, Depression Female Reproductive Disorders: No Pertinent History Other Medical History: RIGHT HIP REPLACEMENT 2004. RIGHT KNEE REPLACEMENT 2014. hand surgery - Past Surgical History Past Surgical History: Yes Neuro Surgical History: No Pertinent History Cardiac: No Pertinent History Respiratory: No Pertinent History Gastrointestinal: Other Genitourinary: No Pertinent History Musculoskeletal: Joint Replacement, Other Female Surgical History: Tubal Ligation, Other Other Surgical History: stomach stapled, right hip and knee replacement, ovary removed. knees scopes. rigth finger amputation - Social History Smoking Status: Former smoker How long have you smoked: 2 years Exposure to second hand smoke: No Drug Use: none Patient Lives Alone: No - Nursing Vital Signs Nursing Vital Signs: Initial Vital Signs Temperature 98.0 F 02/03/21 06:50 Pulse Rate 73 02/03/21 06:50 Respiratory Rate 14 02/03/21 06:50 Blood Pressure 109/80 02/03/21 06:50 O2 Sat by Pulse Oximetry 95 02/03/21 06:50 Pain Scale Pain Intensity 5 - Physical Exam General Appearance: no apparent distress Eye Exam: PERRL/EOMI, eyes nml inspection Ears, Nose, Throat Exam: normal ENT inspection, TMs normal, pharynx normal Neck Exam: normal inspection, non-tender, supple, full range of motion, No Brudzinski, No Kernig's, No limited range of motion, No midline tenderness Respiratory Exam: normal breath sounds, lungs clear Cardiovascular Exam: regular rate/rhythm, normal heart sounds Gastrointestinal/Abdominal Exam: soft, normal bowel sounds, No tenderness Back Exam: normal inspection, normal range of motion, No CVA tenderness Extremity Exam: normal inspection, normal range of motion, pelvis stable Mental Status Exam: alert, 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, 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 Exam: normal hearing, normal speech, PERRL, No facial asymmetry Coordination/Gait Exam: normal finger to nose, normal cerebellar function Motor/Sensory Exam: no motor deficit, no sensory deficit, no pronator drift, negative Babinski's sign DTR Exam: bicep (R): 2+, bicep (L): 2+, knee (R): 2+, knee (L): 2+, ankle (R): 2+, ankle (L): 2+ Skin Exam: normal color SpO2 Interpretation: normal SpO2: 95 O2 Delivery: Room Air Ordered Tests: Active Orders 24 hr Category Date Time Status IV Insertion STAT Care 02/03/21 07:36 Active HEAD WITHOUT CONTRAST [CT] Routine Exams 02/03/21 07:01 Completed Medication Summary Generic Name Dose Route Start Last Admin Trade Name Freq PRN Reason Stop Dose Admin Sodium Chloride 1,000 mls @ 500 mls/hr 02/03/21 07:36 Sodium Chloride 0.9% 1000 Ml IV 02/03/21 09:35 .Q2H STA Discontinued Medications Generic Name Dose Route Start Last Admin Trade Name Freq PRN Reason Stop Dose Admin Acetaminophen 975 mg 02/03/21 07:36 02/03/21 07:49 Tylenol 325 Mg PO 02/03/21 07:37 975 mg STAT ONE Administration Acetaminophen Confirm 02/03/21 07:44 Tylenol 325 Mg Administered 02/03/21 07:45 Dose 975 mg .ROUTE .STK-MED ONE Diphenhydramine HCl 25 mg 02/03/21 07:36 02/03/21 07:47 Benadryl 50 Mg/Ml IV 02/03/21 07:37 25 mg STAT ONE Administration Diphenhydramine HCl Confirm 02/03/21 07:44 Benadryl 50 Mg/Ml Administered 02/03/21 07:45 Dose 50 mg .ROUTE .STK-MED ONE Sodium Chloride Confirm 02/03/21 07:44 Sodium Chloride 0.9% 500 Ml Administered 02/03/21 07:45 Dose 500 mls @ ud IV .STK-MED ONE Ketorolac Tromethamine 30 mg 02/03/21 07:36 02/03/21 07:46 Toradol 30 Mg Injection IV 02/03/21 07:37 30 mg STAT ONE Administration Ketorolac Tromethamine Confirm 02/03/21 07:44 Toradol 30 Mg Injection Administered 02/03/21 07:45 Dose 30 mg .ROUTE .STK-MED ONE Metoclopramide HCl 10 mg 02/03/21 07:36 02/03/21 07:48 Reglan 10 Mg/2 Ml IV 02/03/21 07:37 10 mg STAT ONE Administration Metoclopramide HCl Confirm 02/03/21 07:44 Reglan 10 Mg/2 Ml Administered 02/03/21 07:45 Dose 10 mg .ROUTE .STK-MED ONE - Progress Progress: improved Air Movement: good Progress Note: 02/03/21 09:02 60 years old is evaluated for global headache. Her headache was improved on my evaluation. CT head is negative for any acute intracranial findings. She has a nonfocal neuro exam throughout stay in the ER. No signs symptoms suggesting CVA/stroke. She is given fluid bolus and migraine cocktail Toradol/Reglan/Benadryl, on reevaluation her headache is around 1/2 and she wants to go home. No signs of meningismus. I believe patient has migraine, recommended outpatient follow-up with primary care and neurology for further evaluation to be placed on prophylactic medications. She is advised to take Tylenol as needed. Discussed signs symptoms of worsening needing return to ER which she seems understanding. Stable for discharge. Blood Culture(s) Obtained: No Antibiotics given: No Counseled pt/family regarding: diagnosis, need for follow-up, rad results - Departure Departure Disposition: Home Clinical Impression: Migraine headache Qualifiers: Migraine type: other Status migrainosus presence: without status migrainosus Intractability: not intractable Qualified Code(s): G43.809 - Other migraine, not intractable, without status migrainosus Condition: Stable Critical Care Time: No Referrals: RO DEAL [Primary Care Provider] - (1-2 days for reevaluation) LILI FOSTER [NON-STAFF PHY W/O PRIVILEGES] - (1-2 days for reevaluation) Instructions: Headache, Adult (DC) Additional Instructions: Take Tylenol as needed for headache. Follow-up with your primary care and neurology for reevaluation. Return to ER for worsening headache or if have visual disturbance, difficulty speech, focal numbness tingling or weakness or difficulty movements of neck etc.
--- NOTE | 2021-02-03 08:03 | XRAY ---
Indication: Altered level of consciousness. Stroke. Multiple contiguous axial images obtained through the head without contrast. Comparison: None Normal appearing brain parenchyma, ventricles, and bony calvarium for patient's age. Mucosal thickening of both maxillary and right ethmoid sinuses with small right maxillary sinus fluid leveling. Mastoid air cells are clear. Impression: Paranasal sinus disease. Remaining CT head without contrast exam is negative. Comment: Preliminary interpretation was made by [facility]. No critical discrepancy.
[2021-02-03 09:05] VITALS: BP 88/64; PULSE 96
== END 2021-02-03 09:38 | disposition home or self-care (01) ==
LOC: ED 06:48
DX: G43.809 Other migraine, not intractable, without status migrainosus (principal)
CPT/HCPCS: 36000; 70450; 96360; 96374; 96375; 99284; J1200; J1885; A9270-GY

== ENCOUNTER 2022-03-19 17:26 | Emergency (ER) | payer MEDICARE ==
[2022-03-19 17:36] VITALS: BP 122/77; PULSE 110; O2SAT 99
[2022-03-19] MEDS ORDERED: XYLOCAINE 1% HCL 20 ML MDV ONE (17:36)
--- NOTE | 2022-03-19 18:00 | ERPHSYRPT ---
- History of Present Illness Time Seen by Provider: 03/19/22 17:29 Source: patient Exam Limitations: no limitations Patient Subjective Stated Complaint: Pt states "A board fell and hit the back of my leg." Triage Nursing Assessment: Pt presented alert and oriented X 3, skin pwd Pt ambulates with an upright steady gait, able to speak in clear full sentences pt has 1 inch x 1/4 inch laceration noted to posterior left ankle. Physician History: 61 years old female up-to-date with tetanus presented in the ER after she got hit with a board which fell on the back of her left lower leg above ankle with a laceration. Complaining of dull aching to sharp pain more with palpation and movements. There was bleeding initially but stopped with applying pressure. There no difficulty movements of ankles/foot. Timing/Duration: today, sudden, worse Quality: painful Severity: mild, moderate Location: extremities Possible Causes: other Allergies/Adverse Reactions: No Known Drug Allergies Allergy (Verified 02/03/21 07:25) Home Medications: Omeprazole 1 tab PO DAILY 01/12/20 [History] Trazodone HCl 50 mg [Desyrel 50 mg] 150 mg PO QHS 01/12/20 [History] Hx Tetanus, Diphtheria Vaccination/Date Given: No Hx Influenza Vaccination/Date Given: No Hx Pneumococcal Vaccination/Date Given: No Immunizations Up to Date: Yes Travel Risk - International Travel Have you traveled outside of the country in past 3 weeks: No - Coronavirus Screening Are you exhibiting any of the following symptoms?: No Close contact with a COVID-19 positive Pt in past 14-21 Days: No - Vaccine Status Have you recieved a Covid-19 vaccination: No - Review of Systems Constitutional: No Symptoms Ears, Nose, & Throat: No Symptoms Respiratory: No Symptoms Cardiac: No Symptoms Abdominal/Gastrointestinal: No Symptoms Musculoskeletal: Injury Skin: Skin Lesions Neurological: No Symptoms Hematologic/Lymphatic: No Symptoms Immunological/Allergic: No Symptoms - Past Medical History Pertinent Past Medical History: Yes Neurological History: Migraines ENT History: No Pertinent History Cardiac History: Other Respiratory History: Sleep Apnea, Other Endocrine Medical History: No Pertinent History Musculoskeletal History: Arthritis, Fractures GI Medical History: GERD, Gallbladder Disease History: Other Psycho-Social History: Anxiety, Depression Female Reproductive Disorders: No Pertinent History Other Medical History: CPAP, Irregular heartbeat. Surgical History: R JULY, R TKA, R pinky amputation, L shoulder rotator cuff repair (10-12 years ago) - Past Surgical History Past Surgical History: Yes Neuro Surgical History: No Pertinent History Cardiac: No Pertinent History Respiratory: No Pertinent History Gastrointestinal: Other Genitourinary: No Pertinent History Musculoskeletal: Joint Replacement, Other Female Surgical History: Tubal Ligation, Other Other Surgical History: stomach stapled, right hip and knee replacement, ovary removed. knees scopes. rigth finger amputation - Social History Smoking Status: Former smoker How long have you smoked: 2 years Exposure to second hand smoke: No Drug Use: none Patient Lives Alone: No - Nursing Vital Signs Nursing Vital Signs: Initial Vital Signs Temperature 98.3 F 03/19/22 17:31 Pulse Rate 110 H 03/19/22 17:31 Respiratory Rate 18 03/19/22 17:31 Blood Pressure 122/77 03/19/22 17:31 O2 Sat by Pulse Oximetry 99 03/19/22 17:31 Pain Scale Pain Intensity 0 - Physical Exam General Appearance: no apparent distress, alert Neck Exam: normal inspection, full range of motion Respiratory Exam: normal breath sounds, lungs clear Cardiovascular Exam: regular rate/rhythm, normal heart sounds Extremity Exam: lacerations (2.5 cm L-shaped laceration left lower posterior leg with minimal oozing. Intact distal neurovascular.) Skin Exam: normal color SpO2 Interpretation: normal SpO2: 99 O2 Delivery: Room Air Procedures - Laceration/Wound Repair Left Distal Ankle Time of Procedure: 17:44 Wound Location: Left, lower leg Wound Length (cm): 2.5 Wound's Depth, Shape: into muscle, flap Wound Explored: clean Irrigated: Yes Hibiclens Prep: Yes Anesthesia: 1% Lidocaine Volume Anesthetic (ccs): 5 Wound Repaired With: sutures Suture Size/Type: 4-0, ethilon Number of Sutures: 5 Sterile Dressing Applied?: Yes Ordered Tests: Medication Summary Discontinued Medications Generic Name Dose Route Start Last Admin Trade Name Freq PRN Reason Stop Dose Admin Lidocaine HCl Confirm 03/19/22 17:36 Lidocaine Hcl 1% 20 Ml Mdv 20 Ml Ml Administered 03/19/22 17:37 Dose 1 ml .ROUTE .[employer]-MED ONE - Progress Progress: improved Progress Note: 03/19/22 17:59 Laceration is repaired. Recommended avoiding exertional activity and use cane/weightbearing only as tolerated. Outpatient follow-up. Counseled pt/family regarding: diagnosis, need for follow-up - Departure Departure Disposition: Home Clinical Impression: Leg laceration Condition: Stable Critical Care Time: No Referrals: RO GARCIA [Primary Care Provider] - Follow Up with PCP/3 days Instructions: Laceration Repair With Stitches (DC) Additional Instructions: Suture removal in 14 days. Tylenol/ibuprofen as needed for pain. Avoid exertional activities. Use cane/walker. Follow-up with primary care for reevaluation and suture removal. Return to ER for increasing pain swelling d ischarge/fever chills etc.
== END 2022-03-19 18:13 | disposition home or self-care (01) ==
LOC: ED 17:26
DX: S81.812A Laceration without foreign body, left lower leg, initial encounter (principal); W20.8XXA Other cause of strike by thrown, projected or falling object, initial encounter; M79.605 Pain in left leg; K21.9 Gastro-esophageal reflux disease without esophagitis; Z79.899 Other long term (current) drug therapy
CPT/HCPCS: 12001; 99283

== ENCOUNTER 2022-07-15 14:35 | Emergency (ER) | payer MEDICARE ==
[2022-07-15] MEDS ORDERED: XYLOCAINE 1% HCL 20 ML MDV ONE (14:47)
[2022-07-15] MEDS ORDERED: Augmentin 875-125 Tablet PO ONE (15:13)
--- NOTE | 2022-07-15 15:19 | ERPHSYRPT ---
- History of Present Illness Time Seen by Provider: 07/15/22 15:00 Source: patient Exam Limitations: no limitations Patient Subjective Stated Complaint: Patient here for a dog bite to her right breast. Patient states that she was carrying a sack into her sister's when a pi lulu came after her without warning. States the dog isn't her dog, the dog belongs to someone named Raciel Shirley. The dog was on a chain/leash. Patient states the animal was unprovoked. Triage Nursing Assessment: Patient ambulated back to ED holding her right breast. Patient's dress had a moderate amount of bright red blood on it in the same area and below that area. Once the dress was removed, the bra had blood on it. Patient had blood soaked gauze stuck in her bra. Once gauze was removed, patient noted to have an open area from the dog bite measuring 2.2cm X 3cm. A small, 0.6cm from a bite also noted to patient's left hand 5th digit. Physician History: Patient is a 61-year-old female presents to emergency department for evaluation of a dog bite to her right breast. Patient states she was carrying something into her garage when the dog attacked her. Patient states the dog does not belong to her but belongs to a gentleman that she apparently knows. Bite occurred just prior to arrival. Patient states the bite was unprovoked. Patient has a 2 x 2 x 3 cm laceration to the right breast involving the inferior aspect of her areola. No other injuries reported. No other trauma reported. Patient states her tetanus is up-to-date. Symptoms are mild to moderate in intensity. Patient has some pain localized to the area of involvement. Patient received lidocaine prior to irrigation and pain resolved with the local. Patient otherwise feels well. She voices no other complaints or concerns at this time. We did discuss the possibility of rabies. The possibility of rabies in a domestic dog is very low. Risks and benefits of rabies versus risk and benefits of the shot were discussed. Patient declined rabies vaccinations. Patient voices no other complaints or concerns at this time. Portions of this note were created with voice recognition technology. There may be grammatical, spelling, punctuation or sound alike errors Timing/Duration: today Severity: moderate Modifying Factors: Improves With: nothing Associated Symptoms: denies symptoms Allergies/Adverse Reactions: No Known Drug Allergies Allergy (Verified 07/15/22 14:45) Hx Tetanus, Diphtheria Vaccination/Date Given: Yes Hx Influenza Vaccination/Date Given: Yes Hx Pneumococcal Vaccination/Date Given: No Immunizations Up to Date: Yes Travel Risk - International Travel Have you traveled outside of the country in past 3 weeks: No - Coronavirus Screening Are you exhibiting any of the following symptoms?: No Close contact with a COVID-19 positive Pt in past 14-21 Days: No - Vaccine Status Have you recieved a Covid-19 vaccination: Yes Account Resolution Expert: Moderna - Vaccination Dates Date of 2cond Vaccination (if applicable): 2020 - Review of Systems Constitutional: No Symptoms, No Fever, No Chills Eyes: No Symptoms Ears, Nose, & Throat: No Symptoms Respiratory: No Symptoms, No Cough, No Dyspnea Cardiac: No Symptoms, No Chest Pain, No Edema, No Syncope Abdominal/Gastrointestinal: No Symptoms, No Abdominal Pain, No Nausea, No Vomiting, No Diarrhea Genitourinary Symptoms: No Symptoms, No Dysuria Musculoskeletal: No Symptoms, No Back Pain, No Neck Pain Skin: No Symptoms, No Rash Neurological: No Symptoms, No Dizziness, No Focal Weakness, No Sensory Changes Psychological: No Symptoms Endocrine: No Symptoms Hematologic/Lymphatic: No Symptoms Immunological/Allergic: No Symptoms All Other Systems: Reviewed and Negative - Past Medical History Pertinent Past Medical History: Yes Neurological History: Migraines ENT History: No Pertinent History Cardiac History: Other Respiratory History: Sleep Apnea, Other Endocrine Medical History: No Pertinent History Musculoskeletal History: Arthritis, Fractures GI Medical History: GERD, Gallbladder Disease History: Other Psycho-Social History: Anxiety, Depression Female Reproductive Disorders: No Pertinent History Other Medical History: CPAP, Irregular heartbeat. Surgical History: R JULY, R TKA, R pinky amputation, L shoulder rotator cuff repair (10-12 years ago) - Past Surgical History Past Surgical History: Yes Neuro Surgical History: No Pertinent History Cardiac: No Pertinent History Respiratory: No Pertinent History Gastrointestinal: Other Genitourinary: No Pertinent History Musculoskeletal: Joint Replacement, Other Female Surgical History: Tubal Ligation, Other Other Surgical History: stomach stapled, right hip and knee replacement, ovary removed. knees scopes. rigth finger amputation - Social History Smoking Status: Never smoker How long have you smoked: 2 years Exposure to second hand smoke: No Drug Use: none Patient Lives Alone: No - Nursing Vital Signs Nursing Vital Signs: Initial Vital Signs Temperature 98.4 F 07/15/22 14:46 Pulse Rate 90 07/15/22 14:46 Respiratory Rate 19 07/15/22 14:46 Blood Pressure 113/67 07/15/22 14:46 O2 Sat by Pulse Oximetry 98 07/15/22 14:46 Pain Scale Pain Intensity 7 - Physical Exam General Appearance: no apparent distress, alert Eye Exam: PERRL/EOMI, eyes nml inspection Ears, Nose, Throat Exam: normal ENT inspection, TMs normal, pharynx normal, moist mucous membranes Neck Exam: normal inspection, non-tender, supple, full range of motion Respiratory Exam: normal breath sounds, lungs clear, airway intact, No chest tenderness, No respiratory distress Cardiovascular Exam: regular rate/rhythm, normal heart sounds, normal peripheral pulses Gastrointestinal/Abdomen Exam: soft, normal bowel sounds, No tenderness, No mass Back Exam: normal inspection, normal range of motion, No CVA tenderness, No vertebral tenderness Extremity Exam: normal inspection, normal range of motion, pelvis stable Neurologic Exam: alert, 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, cooperative, normal mood/affect, nml cerebellar function, nml station & gait, sensation nml, No motor deficits Skin Exam: normal color, warm, dry, other (Patient has a 2 x 2 x 3 cm laceration involving the inferior aspect of the areola of the right breast. The area otherwise neurovascular intact.), No rash Lymphatic Exam: No adenopathy SpO2 Interpretation: normal SpO2: 98 O2 Delivery: Room Air Procedures - Laceration/Wound Repair Right Chest Time of Procedure: 15:23 Wound Location: Right (Right breast) Wound Length (cm): 3 Wound's Depth, Shape: superficial Wound Explored: clean Irrigated: Yes Hibiclens Prep: Yes Anesthesia: 2% Lidocaine Volume Anesthetic (ccs): 4 Wound Debrided: No debridement indicated Wound Repaired With: sutures Suture Size/Type: 5-0, nylon Number of Sutures: 8 Layer Closure?: No Sterile Dressing Applied?: Yes Splint Applied?: No Sling Applied?: No Progress: 07/15/22 15:24 Patient tolerated procedure well. No complications during or after procedure. Neurovascular intact post procedure. - Course Nursing assessment & vital signs reviewed: Yes Ordered Tests: Medication Summary Generic Name Dose Route Start Last Admin Trade Name Freq PRN Reason Stop Dose Admin Amoxicillin/Clavulanate Potassium 875 mg 07/15/22 15:13 Amox Tr/Potassium Clavulanate 875 Mg Tablet PO 07/15/22 15:14 STAT ONE Discontinued Medications Generic Name Dose Route Start Last Admin Trade Name Zechariah PRN Reason Stop Dose Admin Lidocaine HCl Confirm 07/15/22 14:47 Lidocaine Hcl 1% 20 Ml Mdv 20 Ml Ml Administered 07/15/22 14:48 Dose 10 ml .ROUTE .[employer]-MED ONE - Progress Progress: improved Progress Note: Patient reassessed. She feels well. Pain well controlled. Laceration repaired. Tetanus up-to-date. Patient received a dose of Augmentin in our ED. A prescription for the same was forwarded to patient's pharmacy. Patient agrees to follow-up with her primary care doctor within 48 hours for evaluation. Sutures are to be removed in 10 days. Patient voices no other complaints or concerns at this time. [id number] analgesics as needed. Portions of this note were created with voice recognition technology. There may be grammatical, spelling, punctuation or sound alike errors 07/15/22 15:25 Patient denies foreign body sensation to the area involved. No visualized foreign bodies observed. 07/15/22 15:27 Counseled pt/family regarding: diagnosis, need for follow-up - Departure Departure Disposition: Home Clinical Impression: Dog bite, Laceration Condition: Stable Critical Care Time: No Referrals: SHIELA GUERRERO [Primary Care Provider] - Follow up/PCP as directed Additional Instructions: Discharge/Care Plan ARMANDO UNGER DILMA was seen on 07/15/22 in the Emergency Room. The patient was counseled regarding Diagnosis,Lab results, Imaging studies, need for follow up and when to return to the Emergency Room. Prescriptions given: Discharge Note I have spoken with the patient and/or caregivers. I have explained the patient's condition, diagnosis and treatment plan based on the information available to me at this time. I have answered the patient's and/or caregiver's questions and addressed any concerns. The patient and/or caregivers have as good understanding of the patient's diagnosis, condition and treatment plan as can be expected at this point. The vital signs have been stable. The patient's condition is stable and appropriate for discharge from the emergency department. The patient will pursue further outpatient evaluation with the primary care physician or other designated or consulting physician as outlined in the discharge instructions. The patient and/or caregivers are agreeable to this plan of care and follow-up instructions have been explained in detail. The patient and/or caregivers have received these instruction. The patient/and or caregivers are aware that any significant change in condition or worsening of symptoms should prompt an immediate return to this or the closest emergency department or call 911. Prescriptions: Amox Tr/Potass Clav. 875 mg [Augmentin 875-125 Tablet] 875 mg PO BID 7 Days #14 tablet
[2022-07-15] MEDS ORDERED: XYLOCAINE 1% HCL 20 ML MDV IJ ONE (15:20)
[2022-07-15] MEDS ORDERED: BACIGUENT PACKET TP ONE (15:20)
[2022-07-15] MEDS ORDERED: Augmentin 875-125 Tablet ONE (15:39)
[2022-07-15] MEDS ORDERED: BACIGUENT PACKET ONE (15:47)
[2022-07-15 16:12] VITALS: BP 120/78; PULSE 80; O2SAT 99
== END 2022-07-15 15:55 | disposition home or self-care (01) ==
LOC: ED 14:35
DX: S20.171A Other superficial bite of breast, right breast, initial encounter (principal); W54.0XXA Bitten by dog, initial encounter; Y92.015 Private garage of single-family (private) house as the place of occurrence of the external cause
CPT/HCPCS: 12002; 96372; 99283; A9270-GY